=== PATIENT | female | born 1985 | race African-American/Black ===

== ENCOUNTER 2018-10-03 17:37 | Emergency (ER) | payer OTHER ==
[~2018-10-03] VITALS: Ht 160 cm; Wt 83.9 kg
[~2018-10-03 17:37] MED LIST: ACETAMINOPHEN325 M1 PO; APAP500 OR; APAP500 PO; BACTRIM DS TAB1 EACH PO; BENZTROPINE MESY2 MG OR; CIPROFLOXACIN500 M3 OR; CITRANATAL B-C1 EAC1; CLARITIN10 MG PO; DEXILANT60 MG; HALDOL DECAN50 MG/M1 IM; HCTZ OR; IBUPROFEN 600600 M1 PO; LABETALOL 100100 MG; LABETALOL 100100 MG PO; LANOLIN56 GM; NOHOMEMEDICATIONS; NORCO 5-325 TA1 EACH PO; PREDNISONE 20 M20 MG PO; PROCARDIA OR; PROVENTIL HFA6.7 G1 INH; TUSSIONEX PENN473 ML PO; ULTRAM 50MG TAB50 MG PO; VALIUM2 MG PO; VISTARIL OR
[2018-10-03 19:15] LABS: CALCIUM 8.9 mg/dL (8.5-10.1); CREATININE 0.7 mg/dL (0.6-1.0); POTASSIUM 3.1 mmol/L (3.5-5.1)
[2018-10-03 19:21] LABS: ALBUMIN 3.5 g/dL (3.4-5.0); TOTAL BILIRUBIN 0.8 mg/dL (<0.1-1.0); TOTAL PROTEIN 7.2 g/dL (6.4-8.2)
[2018-10-03 19:27] LABS: ABSOLUTE NEUTROPHILS 10.7 thou/uL (1.4-8.2); BASOPHILS 0.4 % (0.0-2.0); EOSINOPHILS 0.4 % (0.0-3.0); HEMATOCRIT 37.2 % (37.0-47.0); MCV 91.5 fL (80.0-100.0); MONOCYTES 5.4 % (1.0-8.0); PLATELET COUNT 280 thou/uL (150-400); POLYS 80.8 % (36.0-66.0); RBC 4.07 mil/uL (4.20-5.00); RDW 13.6 % (10.5-14.5); WBC 13.3 thou/uL (4.0-11.0)
[2018-10-03 21:03] LABS: HEMATOCRIT 35.6 % (37.0-47.0); HEMOGLOBIN 12.6 gm/dL (12.0-15.0); MCH 32.3 pg (26.0-34.0); MCHC 35.2 g/dL (28.0-37.0); MCV 91.6 fL (80.0-100.0); RBC 3.89 mil/uL (4.20-5.00); RDW 13.6 % (10.5-14.5); WBC 12.2 thou/uL (4.0-11.0)
[2018-10-03 21:17] LABS: APTT 28.6 Seconds (24.5-32.8)
[2018-10-03 21:36] LABS: PROTIME 10.7 Seconds (9.3-11.4)
[2018-10-03 21:46] VITALS: BP 175/52
== END 2018-10-03 21:50 | disposition short-term general hospital (02) ==
LOC: ER 17:37
PROVIDERS: Emergency Medicine; Physician Assistant
DX: S30.23XA Contusion of vagina and vulva, initial encounter (principal); I10 Essential (primary) hypertension; J45.909 Unspecified asthma, uncomplicated; Z88.8 Allergy status to other drugs, medicaments and biological substances; X58.XXXA Exposure to other specified factors, initial encounter; Y93.89 Activity, other specified; Y92.89 Other specified places as the place of occurrence of the external cause; Y99.8 Other external cause status